=== PATIENT | female | born 1950 | race Hispanic/Latino ===

== ENCOUNTER 2017-08-28 11:16 | Day surgery (SDC) | payer MEDICARE ==
[~2017-08-28 11:16] MED LIST: IOPIDINE ONE; MYDRIACYL ONE; NEOFRIN ONE
[2017-08-28 11:45] VITALS: BP 132/66
[2017-08-28] MEDS ORDERED: NEOFRIN OD ONE (11:50)
[2017-08-28] MEDS ORDERED: IOPIDINE OD ONE (11:50)
[2017-08-28] MEDS ORDERED: MYDRIACYL OD ONE (11:50)
== END 2017-08-28 11:17 | disposition home or self-care (01) ==
LOC: OR 11:16
PROVIDERS: ATTEND Specialist
DX: H26.491 Other secondary cataract, right eye (principal); K21.9 Gastro-esophageal reflux disease without esophagitis; Z90.89 Acquired absence of other organs; Z87.891 Personal history of nicotine dependence; Z90.710 Acquired absence of both cervix and uterus

== ENCOUNTER 2017-09-04 11:08 | Day surgery (SDC) | payer MEDICARE ==
[~2017-09-04 11:08] MED LIST changes: +IOPIDINE OS ONE; +MYDRIACYL OS ONE; +NEOFRIN OS ONE
[2017-09-04] MEDS ORDERED: IOPIDINE OS ONE ×2 (12:00→12:42)
[2017-09-04] MEDS ORDERED: NEOFRIN OS ONE (12:00)
[2017-09-04] MEDS ORDERED: MYDRIACYL OS ONE (12:00)
[2017-09-04 12:29] VITALS: BP 134/64
== END 2017-09-04 12:43 | disposition home or self-care (01) ==
LOC: OR 11:08
PROVIDERS: ATTEND Specialist
DX: H26.492 Other secondary cataract, left eye (principal); K21.9 Gastro-esophageal reflux disease without esophagitis; Z90.710 Acquired absence of both cervix and uterus; F17.200 Nicotine dependence, unspecified, uncomplicated